=== PATIENT | male | born 1955 | race Caucasian/White ===

== ENCOUNTER 2022-03-18 18:55 | Emergency (ER) | payer MEDICARE ==
[2022-03-18] MEDS ORDERED: Ondansetron 4 MG/2 ML SDV IVPUSH ONE (21:23)
[2022-03-18] MEDS ORDERED: Acetaminophen 500 MG Tab PO ONE (21:23)
[2022-03-18] MEDS ORDERED: Sodium Chloride 0.9% 1,000 ML IV ONE (21:23)
[2022-03-18] MEDS ORDERED: Morphine 4 MG/ML VIAL IVPUSH ONE ×2 (21:23→23:24)
[2022-03-18] MEDS ORDERED: Iopamidol 755 MG/ML 500 ML Multipack Bottle IVPUSH ONE (22:41)
[2022-03-18 22:45] LABS: CARBON DIOXIDE,CO2 26.3 mmol/L (21.0-32.0)
[2022-03-19] MEDS ORDERED: oxyCODONE 5 MG/5 ML Cup PO ONE (00:42)
[2022-03-19] MEDS ORDERED: Ibuprofen 400 MG Tab PO ONE (00:43)
[2022-03-19] MEDS ORDERED: Ondansetron 4 MG Tab PO ONE (00:43)
[2022-03-19] MEDS ORDERED: Acetaminophen 325 MG Tab PO ONE (00:43)
[2022-03-19] MEDS ORDERED: oxyCODONE 5 MG Tab PO ONE (00:57)
[2022-03-19 01:38] VITALS: BP 129/86; PULSE 93
== END 2022-03-19 01:37 | disposition home or self-care (01) ==
LOC: MW.ED 18:55
DX: S69.91XA Unspecified injury of right wrist, hand and finger(s), initial encounter (principal); S69.92XA Unspecified injury of left wrist, hand and finger(s), initial encounter; S52.591A Other fractures of lower end of right radius, initial encounter for closed fracture
CPT/HCPCS: 36415; 70450; 71260; 72125; 73110; 74177; 80053; 81003; 85025; 85610; 85730; A9270; J2270; J2405; J7030; Q9967; 99285

== ENCOUNTER 2024-08-17 13:45 | Emergency (ER) | payer MEDICARE, OTHER ==
[2024-08-17 14:29] LABS: BASOPHILS ABSOLUTE AUTO 0.06 K/uL (0.00-0.20); BASOPHILS PERCENT AUTO 0.8 % (0.0-1.0); EOSINOPHILS ABSOLUTE AUTO 0.23 K/uL (0.00-0.45); HEMATOCRIT 47.6 % (42.0-52.0); HEMOGLOBIN 16.8 g/dL (14.0-18.0); IMMATURE GRAN ABSOLUTE AUTO 0.02 K/uL (0.00-0.05); IMMATURE GRAN PERCENT AUTO 0.3 % (0.0-0.4); LYMPHOCYTES ABSOLUTE AUTO 2.08 K/uL (1.00-4.80); LYMPHOCYTES PERCENT AUTO 27.5 % (24.0-44.0); MEAN CORPUSCULAR HEMOGLOBIN 32.7 pg (28.0-32.0); MEAN CORPUSCULAR HGB CONC 35.3 g/dL (32.0-36.0); MEAN CORPUSCULAR VOLUME 92.6 fL (83.0-99.0); MEAN PLATELET VOLUME 8.4 fL (9.4-12.4); MONOCYTES ABSOLUTE AUTO 0.61 K/uL (0.00-0.80); MONOCYTES PERCENT AUTO 8.1 % (0.0-8.0); NEUTROPHILS ABSOLUTE AUTO 4.55 K/uL (1.80-7.70); NEUTROPHILS PERCENT AUTO 60.3 % (41.0-71.0); PLATELET COUNT,PLT 222 K/uL (150-400); RED BLOOD CELL COUNT 5.14 M/uL (4.52-5.90); WHITE BLOOD CELL COUNT,WBC 7.55 K/uL (3.9-11.3)
[2024-08-17 14:54] LABS: ALANINE AMINOTRANSFERASE,ALT 27 IU/L (14-63); ALBUMIN 3.9 g/dL (3.4-5.0); ALKALINE PHOSPHATASE 33 U/L (46-116); ASPARTATE AMNIOTRANSFERASE,AST 15 IU/L (15-37); BILIRUBIN TOTAL 0.6 mg/dL (0.2-1.0); BLOOD UREA NITROGEN,BUN 7 mg/dL (7.0-18.0); CALCIUM 9.3 mg/dL (8.5-10.1); CARBON DIOXIDE,CO2 28.1 mmol/L (21.0-32.0); CHLORIDE,CL 101 mmol/L (98-107); CREATININE 1.3 mg/dL (0.8-1.3); GLUCOSE RANDOM 126 mg/dL (74-106); LIPASE 40 U/L (16-77); POTASSIUM,K 4.1 mmol/L (3.5-5.1); PROTEIN TOTAL,TP 7.7 g/dL (6.4-8.2); SODIUM,NA 137 mmol/L (136-148)
[2024-08-17 14:55] LABS: ESTIMATED GFR 60 mL/min (>60)
[2024-08-17] MEDS: Iopamidol 755 MG/ML 500 ML Multipack Bottle IVPUSH STA (15:20)
[2024-08-17 16:21] VITALS: BP 127/93; PULSE 91
== END 2024-08-17 16:21 | disposition home or self-care (01) ==
LOC: MW.ED 13:45
DX: R10.32 Left lower quadrant pain (principal); Z79.899 Other long term (current) drug therapy
CPT/HCPCS: 36415; 74177; 80053; 83690; 85025; 99284; Q9967

== ENCOUNTER 2024-09-10 06:42 | Day surgery (SDC) | payer MEDICARE, OTHER ==
[~2024-09-10 06:42] MED LIST: Sodium Chloride 0.9% 10 ML Syringe FLUSH PRN; Sodium Chloride 0.9% 2.5 ML Syringe FLUSH PRN; Sodium Chloride 0.9% 20 ML SDV IV PRN
[2024-09-10] MEDS: Lactated Ringers 1,000 ML IV SCH (07:11)
[2024-09-10] MEDS ORDERED: Lidocaine 2% 5 ML SDV ONE (07:24)
[2024-09-10] MEDS ORDERED: dexmedeTOMIDine HCl 200 MCG/2 ML SDV ONE (07:24)
[2024-09-10] MEDS ORDERED: propofoL 500 MG/50 ML 50 ML ONE (07:24)
[2024-09-10] MEDS ORDERED: Sodium Chloride 0.9% 20 ML ONE (07:24)
[2024-09-10 09:13] VITALS: BP 124/98; PULSE 88
== END 2024-09-10 09:20 | disposition home or self-care (01) ==
LOC: MW.SDS 06:42
PROVIDERS: ATTEND Surgery
DX: D12.0 Benign neoplasm of cecum (principal); D12.2 Benign neoplasm of ascending colon; D12.5 Benign neoplasm of sigmoid colon; K31.7 Polyp of stomach and duodenum; K31.89 Other diseases of stomach and duodenum; K57.30 Diverticulosis of large intestine without perforation or abscess without bleeding; J44.9 Chronic obstructive pulmonary disease, unspecified; F32.A Depression, unspecified; Z87.891 Personal history of nicotine dependence; Z79.899 Other long term (current) drug therapy
CPT/HCPCS: 43239; 45380; 45385; J2704; J7120; 00813; 88305; J3490